=== PATIENT | male | born 1955 | race Caucasian/White ===

== ENCOUNTER 2020-09-10 14:59 | Emergency (ER) | payer MEDICARE ==
[2020-09-10] MEDS ORDERED: CEPHALEXIN500 M1 PO (19:04)
== END 2020-09-10 19:26 | disposition home or self-care (01) ==
LOC: ER1 14:59
DX: S01.111A Laceration without foreign body of right eyelid and periocular area, initial encounter (principal); S01.81XA Laceration without foreign body of other part of head, initial encounter; S50.01XA Contusion of right elbow, initial encounter; S80.211A Abrasion, right knee, initial encounter; I10 Essential (primary) hypertension; I25.2 Old myocardial infarction; Z23 Encounter for immunization; E78.00 Pure hypercholesterolemia, unspecified; W01.0XXA Fall on same level from slipping, tripping and stumbling without subsequent striking against object, initial encounter
CPT/HCPCS: 12015; 70450; 73080; 90471; 90715; 99284